=== PATIENT | female | born 2000 | race Hispanic/Latino ===

== ENCOUNTER 2020-09-12 11:06 | Inpatient (IN) | payer OTHER ==
[2020-09-12] VITALS (12 sets, daily range): BP systolic 91–129; BP diastolic 51–70
[~2020-09-12] VITALS: Ht 157.5 cm; Wt 77.2 kg
[2020-09-12] MEDS ORDERED: LACTATED RINGER'S 1000 ML IV STA (11:27)
[2020-09-12] MEDS ORDERED: PENICILLIN G POTASSIUM IV 5 MU in D5W MINI-BAG PLUS 100 ML IV STA (11:27)
[2020-09-12] MEDS ORDERED: miSOPROStol 50MCG 1/2 TABLET PO ONE (11:45)
[2020-09-12] MEDS ORDERED: OXYTOCIN DRIP 30 UNITS in IV 1 EA IV SCH (11:45)
--- NOTE | 2020-09-12 12:07 | HPEPDOC ---
Obstetrical History & Physical General Date of Admission Sep 12, 2020 at 11:06 History of Present Illness 19 yo G1 @ 39+0 LMP C/W 11W US who is admitted for elective induction of labor. patient reports that her on most recent US HC is measuring less than 10%. she reports some contractions, denies VB, LOF or decreased movements. she is GBS Positive and has no medical allergies. she has no other concerns. Care Care: Good Care Dating Final EDC: Sep 19, 2020 Final EDC for Daily Update: Sep 19, 2020 Final EDC by: LMP LMP: Dec 14, 2019 EGA at Admission: 39 Antepartum Course Diagnos(e)s 1. GBS positive- no penicillin allergy 2. Varicella Non immune 3. 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: No pertinent history Past Medical History Medical History DENIES Surgical History: Denies/None Family History Significant Family History: No pertinent family hx Family History NON CONTRIBUTORY Social History Marital Status: Single Family situation: Spouse/partner home Psychosocial History: No pertinent psych hx * Smoker: non-smoker Alcohol: Denies Drugs: denies Abuse Violence Screening Have you been hit/kicked/slapp: No Have you been sexually assault: No Imunizations Tdap status: current Influenza Status: declined Allergies Coded Allergies: No Known Allergies (Unverified , 09/12/20) Physical Examination Physical Examination GENERAL: Alert and oriented times three. BREAST: . ABDOMEN: Gravid and non-tender to touch. FETUS: Is vertex (VTX) by sterile vaginal examination (SVE) HEART RATE: Regular rate and rhythm. LUNGS: Clear to auscultation (CTA). EXTREMITIES: No edema. No clonus. SVE: 10/03/-3, [facility] [employer] Laboratory Data [facility] Laboratory Tests 2 09/12/20 11:27: Serology Scanned Report Hepatitis B Testing Urine Culture: No Growth Pertinent Laboratoy Data Blood Type: O+ RBC Antibody Screen: Negative HIV: Negative Hepatitis B: Negative Hepatitis C: Unknown Rapid Plasma Reagin: Nonreactive Rubella: Immune Varicella: Nonreactive Group B Streptococcus: Positive Cystic Fibrosis: Negative Anatomy Ultrasound Placenta Location: Posterior Normal Anatomy: Yes Steroid Therapy Steroid Therapy: No Vaginal Examination Effacement: 30% Station: -3 Cervical Consistency: Medium Cervical Position: Middle Presentation: Cephalic presentation Assessment Heart Rate (FHR): 150 Variability: Moderate Accelerations: Positive Decelerations: None Tocometer Contractions: Yes Frequency: regular Duration: less than 60 seconds Strength: palpated as mild Multi-drug resistant Organism: No history of MDRO Assessment/Plan Assessment 19 yo G1 @ 39+0 LMP C/W 11W US who is admitted for elective induction of labor. patient reports that her on most recent US HC is measuring less than 10%. cat I tracing, SVE 10/03/-3. 1. GBS positive- no penicillin allergy 2. Varicella Non immune 3. 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 Diet: CLEAR Group B Streptococcus (GBS) POSITIVE -Start PENICILLIN Labs and intravenous (IV) per unit protocol. Counseled on Pitocin and induction of labor (IOL). Lactated Ringers (LR): Bolus 1000 mL, then at 125 mL/hr. Anticipate [normal spontaneous delivery ()]. C-S as appropriate. Labor and Delivery Counseling Plan will be to deliver your baby through the vagina with possible assistance of forceps or vacuum device if needed for maternal or indications. Forceps and vacuum are devices that can assist with vaginal delivery when normal pushing efforts cannot achieve delivery on their own or when delivery is needed in an emergency for baby's well-being. Medications may be required to induce or augment (help) your labor in order to achieve a vaginal delivery. An episiotomy may be required to help your baby to delivery vaginally. You may also require repair of any lacerations or tears of your vagina or vulva that are caused by delivery. In some cases, emergencies can occur that require an emergency section delivery so quickly that there may not be enough time to stop and complete consent forms for section. Understand that if this occurs, your providers will discuss the need for a section with you before they proceed with surgery. section is the delivery of your baby through an incision in your abdomen. In some situations, section may be safer to m om and baby than continuing labor and is only performed when clinically indicated. Risks of vaginal delivery include but are not limited to: Bleeding, infection, injury to the vagina, pelvic structures, injury to baby, damage to the uterus, reactions to anesthesia, uterine rupture, risk of hysterectomy for life threatening bleeding, or . Medications used to induce or augment labor may increase your risk for infection, uterine tachysystole, uterine rupture, heart rate abnormalities, need for emergency delivery or possible hysterectomy, and hemorrhage. Additional risks for use of forceps and vacuum include: increased risk of perineal and vaginal lacerations, risk of urinary or bowel incontinence, increased risk of injury to baby with bruising, scratches, hematomas on the head, or intracranial bleeding. YAMIL PRO MD Sep 12, 2020 11:43
[2020-09-12 12:44] LABS: HEMATOCRIT 34.5 % (36.0-47.0); HEMOGLOBIN 11.3 g/dl (12.0-15.5); MEAN CORPUSCULAR HEMOGLOBIN 30.1 pg (27.0-33.0); MEAN CORPUSCULAR HGB CONC 32.8 g/dl (32.0-36.5); MEAN CORPUSCULAR VOLUME 91.8 fl (80.0-96.0); PLATELET COUNT, AUTOMATED 272 10^3/uL (150-450); RED BLOOD COUNT 3.76 10^6/uL (4.00-5.40); WHITE BLOOD COUNT 11.5 10^3/uL (4.0-10.0)
[2020-09-12] MEDS: LR 1,000 ML IV SCH ×2 (14:05→22:12)
[2020-09-12] MEDS: PENICILLIN G POTASSIUM IV 2.5 MU in IV 1 EA IV SCH ×2 (17:00→20:59)
--- NOTE | 2020-09-12 17:42 | IPNPDOC ---
Obstetrical Progress Note Date of Service Sep 12, 2020 Subjective To room for acceptance of care. Patient has no complaints at this time. Objective Vital Signs Date Time Temp Pulse Resp B/P (MAP) Pulse Ox O2 Delivery O2 Flow Rate FiO2 09/12/20 11:36 98.2 114 18 112/56 (74) Assessment Heart Rate (FHR): 135 Variability: Moderate Accelerations: Positive Decelerations: None Heart Rate Tracing: Category I Tocometer Contractions: Yes Frequency: irregular Assessment and Plan Status: Reassuring Anticipate: Vaginal Delivery Additional Comments Ms. Booth is a 19yo at 39+0 who is undergoing elective induction as her baby's HC is <10%ile. Her is c/b GBS pos, varicella non-immune, and anemia. On admission she was 3/-3 and a DLFB was placed. Her PCN was started at 1230. Her DLFB came out at 1630. Right now is eating a meal before starting pitocin. She does not report significant pain or discomfort. VS normal, CAT I tracing. Plan to start pitocin and reassess in 4-6h or sooner if clinically indicated. JENARO GUERRERO DO Sep 12, 2020 17:42
[2020-09-13] VITALS (45 sets, daily range): BP systolic 86–123; BP diastolic 43–73
[2020-09-13] MEDS: PENICILLIN G POTASSIUM IV 2.5 MU in IV 1 EA IV SCH ×2 (00:46→05:50)
[2020-09-13] MEDS ORDERED: FENTANYL 2MCG/ML ROPIVACAINE 0.2% IN 0.9% NACL 100ML IVBAG As Ordered ONE (01:20)
[2020-09-13] MEDS ORDERED: ONDANSETRON 4MG/2ML VIAL As Ordered ONE (01:30)
[2020-09-13] MEDS ORDERED: ONDANSETRON 4MG/2ML VIAL IV ONE (01:35)
--- NOTE | 2020-09-13 02:31 | IPNPDOC ---
Obstetrical Progress Note Date of Service Sep 13, 2020 Subjective To room for assessment after patient received epidural for increased pain. Epidural is working well, no complaints at this time. Objective Vital Signs Date Time Temp Pulse Resp B/P (MAP) Pulse Ox O2 Delivery O2 Flow Rate FiO2 09/12/20 20:00 98.2 91 18 92/51 (65) Assessment Heart Rate (FHR): 150 Variability: Moderate Accelerations: Positive Heart Rate Tracing: Category I Tocometer Contractions: Yes Frequency: irregular Sterile Vaginal Examination Dilation: 5 cm Effacement (%): 50% Station: -2 Cervical Consistency: Soft Cervical Position: Middle Postion/Presentation: Cephalic presentation (by exam) Assessment and Plan Anticipate: Vaginal Delivery Additional Comments To room after epidural. SVE /-2, AROM clear. CAT I tracing, normal VS. Will continue IOL with pitocin, reassess in 4-6h or sooner if clinically indicated. JENARO GUERRERO DO Sep 13, 2020 02:31
[2020-09-13] MEDS ORDERED: diphenhydrAMINE 50MG/ML VIAL (J1200) IV PRN (03:00)
[2020-09-13] MEDS ORDERED: ePHEDrine SULFATE 25 MG/5 ML(5MG/ML) SYRINGE IV PRN (03:00)
[2020-09-13] MEDS ORDERED: EPIDURAL COMMENT XX SCH (03:00)
[2020-09-13] MEDS ORDERED: LACTATED RINGER'S 1000 ML IV PRN (03:00)
[2020-09-13] MEDS ORDERED: REFRIGERATOR IV KEYS XX PRN (03:00)
[2020-09-13] MEDS ORDERED: ONDANSETRON 4MG/2ML VIAL IV PRN (03:00)
[2020-09-13] MEDS ORDERED: FENTANYL/ROPIVACAINE/NACL BAG 100 ML EPIDURAL SCH (03:00)
[2020-09-13] MEDS ORDERED: EPIDURAL/PCA KEYS XX PRN (03:00)
[2020-09-13] MEDS ORDERED: NALOXONE INJ 0.4MG/1ML VIAL (J2310 PER 1MG) IV PRN (03:00)
[2020-09-13] MEDS ORDERED: ePHEDrine SULFATE 25 MG/5 ML(5MG/ML) SYRINGE As Ordered ONE (03:04)
[2020-09-13] MEDS: LR 1,000 ML IV SCH (05:51)
[2020-09-13 07:03] LABS: CORD GAS ABE A -6.1; CORD GAS HCO3 A 20.8 MEQ/L; CORD GAS O2 SAT A 51.9 %; CORD GAS PCO2 A 46.7 mmHg; CORD GAS PH A 7.267 UNITS; CORD GAS PO2 A 24.3 mmHg; CORD GAS SBC A 18.5 MEQ/L; CORD GAS TCO2 A 22.3 MEQ/L
[2020-09-13 07:04] LABS: CORD GAS ABE V -6.3; CORD GAS HCO3 V 20.5 MEQ/L; CORD GAS O2 SAT V 70.4 %; CORD GAS PCO2 V 45.4 mmHg; CORD GAS PH V 7.272 UNITS; CORD GAS SBC V 18.8 MEQ/L; CORD GAS TCO2 V 21.9 MEQ/L
--- NOTE | 2020-09-13 07:50 | DNPDOC ---
[facility] Delivery Note Delivery Note DATE OF DELIVERY: 09/13/20 PREDELIVERY DIAGNOSIS: 39+1/7 weeks' gestation and labor. POST DELIVERY DIAGNOSIS: Delivered. PROCEDURE: vaginal delivery, labial laceration repair FOREMAN OR SUPERVISOR AND OPERATOR: Rangel Childs DO ANESTHESIA: general ESTIMATED BLOOD LOSS: 200 mL. FINDINGS: 3250g, Score 8/9, nuchal cord times 0. DELIVERY SUMMARY: Patient is a 19yo at 39+1 who is being induced for HC <10%ile electively at 39wk. She was induced with a DLFB and penicillin was given for GBS positive. Her anthony came out and she had Pitocin and was ruptured. she progressed to c/C/+2 and with good maternal effort delivered the head followed by the corpus without difficulty. The baby had spontaneous movement and cry. The cord clamping was delayed 60s and then was cut by the FOB. A cord segment was obtained and gasses collected. Cord blood was collected. With margy downward traciton the placenta delivered. The placenta had a 3 vessel cord and was in-tact. The uterus was firm with massage and 1 bag of pitocin and bleeding was scant. She had bilateral labial lacerations that were repaired with 4-0 vicryl rapid. She had a small abrasion of the forchette that was repaired with a 4-0 vicryl rapid figure of 8 stitch. The surgical sites were hemostatic. The sponge, lap and needle counts were correct. There were no complications. RANGEL GUERRERO DO Sep 13, 2020 07:50
[2020-09-13] MEDS ORDERED: OXYTOCIN DRIP 30 UNITS in IV 1 EA IV SCH (07:51)
[2020-09-13] MEDS ORDERED: ACETAMINOPHEN TAB 650MG DOSE (2X325MG) PO PRN (07:55)
[2020-09-13] MEDS ORDERED: IBUPROFEN 600MG TAB PO PRN (07:55)
[2020-09-13] MEDS ORDERED: DIBUCAINE 1% OINTMENT 30GM TOP PRN (07:55)
[2020-09-13] MEDS ORDERED: DOCUSATE SODIUM 100MG CAPSULE PO PRN (07:55)
[2020-09-13] MEDS: IBUPROFEN 800 MG TAB PO PRN (08:50)
[2020-09-13] MEDS: PRENATAL VITAMINS CHEWABLE TABLET PO SCH (08:50)
[2020-09-13] MEDS: ACETAMINOPHEN 500 MG TAB PO PRN (16:09)
[2020-09-14] MEDS: IBUPROFEN 800 MG TAB PO PRN ×2 (00:13→17:44)
[2020-09-14 06:00] VITALS: BP 111/57
[2020-09-14] MEDS ORDERED: INFLUENZA QUADRIVALENT PF VACCINE 0.5ML SYRINGE IM ONE (09:00)
[2020-09-14] MEDS: ACETAMINOPHEN 500 MG TAB PO PRN (09:17)
[2020-09-14] MEDS: PRENATAL VITAMINS CHEWABLE TABLET PO SCH (09:17)
[2020-09-14 18:00] VITALS: BP 120/64
--- NOTE | 2020-09-14 18:56 | OBDS ---
[facility] Obstetrical Discharge Sum. Obstetrical Discharge Summary Date: Sep 14, 2020 Time: 18:40 : 1 Term: 1 Pre-term: 0 Abortions: 0 Livin VDRL: Non-Reactive Rh: Positive Rubella: Immune Labor term labor Delivery Sex: Female Weight: pounds (7), ounces (3) Anesthesia: Regional Anesthesia Episiotomy labial abrasion A/P, Post Course List any complications Admission diagnosis: labor Discharge diagnosis: stable 36hr pp Condition at Discharge: stab;e Discharge Instructions: Home Activity: ad ivette Diet: reg Medications: @[employer], start micronor 2 wk pp Follow-up: in clinic at 6wks Other: reviewed reasons to return for care, signs of infection and excessive bleeding, normal recovery expectations, , options for care, how to contact, and scheduling f/u appt with expressed understanding. NURIA ANGULO CNM Sep 14, 2020 18:56
== END 2020-09-14 20:02 | disposition home or self-care (01) | DRG 807 ==
LOC: M LDI 11:06 → M OBS 09-13 09:30
PROVIDERS: ADMIT Obstetrics & Gynecology; ATTEND Obstetrics & Gynecology
PROC: 3E033VJ Introduction of Other Hormone into Peripheral Vein, Percutaneous Approach (ICD-10-PCS; 2020-09-12)
PROC: 10E0XZZ Delivery of Products of Conception, External Approach (ICD-10-PCS; principal; 2020-09-13)
PROC: 10907ZC Drainage of Amniotic Fluid, Therapeutic from Products of Conception, Via Natural or Artificial Opening (ICD-10-PCS; 2020-09-13)
PROC: 0HQ9XZZ Repair Perineum Skin, External Approach (ICD-10-PCS; 2020-09-13)
DX: O99.824 Streptococcus B carrier state complicating childbirth (principal); Z37.0 Single live birth; Z3A.39 39 weeks gestation of pregnancy; O99.02 Anemia complicating childbirth; D64.9 Anemia, unspecified; O70.0 First degree perineal laceration during delivery